=== PATIENT | female | born 1935 | race Caucasian/White ===

== ENCOUNTER 2016-09-26 18:20 | Observation (INO) | payer MEDICARE, BC ==
--- NOTE | ~2016-09-26 | HP ---
History And Physical [place] [address] [facility] [place]. [address] NAME: KAELYN SAAVEDRA : 39 STATUS : ADM Milena PAT#: [id number] AGE: 81 ADM/REG DATE : 09/26/16 MR#: [id number] REPORT SERV DATE: 09/27/16 DICTATED BY: ALCIRA FLORENTINO DATE: 09/27/16 REPORT STATUS : Draft TRANSCRIBED BY: FRANK DATE: 09/27/16 DATE OF ADMISSION: 09/26/2016 PRIMARY FRAME ALIGNER: Joe Miles M.D. CHIEF COMPLAINT: Chest pain. HISTORY OF PRESENT ILLNESS: This is a very pleasant 81-year-old female with no history of coronary artery disease, who states onset of midsternal chest pain approximately five days ago. It began Friday afternoon, and she assumed it was indigestion. It was intermittent, occurring a couple of times a day over the next couple of days, lasting a total of perhaps 20 minutes, but each day, there seemed to be increasing occurrences of the chest pain until yesterday morning on Friday when she was awakened by the chest pain around 6 o'clock. Over the course of the morning, she took some Xanax and her normal medications as well as Tums and a Coca Cola, but this did not seem to ease the pain. She ate a lunch and then went to her primary care physician in the early afternoon yesterday. They performed an EKG and called EMS, who brought her here to our emergency department. One sublingual nitroglycerin en route to our emergency department as well as a couple of other doses of sublingual nitroglycerin throughout the course of her stay have not eased her chest pain at all. She states it is currently a 5/10 in intensity and seems to be somewhat relieved with IV morphine. It is not pleuritic in nature nor was it worse when she was doing her housework yesterday while having the pain. She describes it as burning to her mid chest with no specific radiation and no significant shortness of breath. It is also not positional. It has not been fully relieved since yesterday morning. The patient denies any recent fever, cough, or chills. She does have a history of a DVT to the right lower extremity and was maintained on Coumadin for some time with it being discontinued approximately one year ago. Her platelet count is low at 95 on this admission, and the patient reports easy bruising that she has noticed chronically. Denies any recent bloody bowel movements or black-colored stools. She actually had a full GI workup with endoscopy and colonoscopy approximately two weeks ago. She has had 20-pound weight loss in the last six months. She states the only finding on those procedures was some gastritis. She has had no new medications started and mostly takes her medications p.r.n., except her Toprol, Prilosec, and calcium plus vitamin D. She had a syncopal episode several months ago, requiring an ER visit with no etiology found. No other recent presyncope, palpitations, PND, or orthopnea. The patient has chronic lower extremity edema, typically worse in the left side, and this has not increased recently. PAST MEDICAL HISTORY: 1. Hypertension. 2. Mixed hyperlipidemia. 3. History of ventricular arrhythmia ablation. 4. History of right lower extremity DVT, now off Coumadin. 5. Anxiety. 6. GERD and gastritis with recent colonoscopy and endoscopy. 7. History of MRSA in 08/2015 to the right lower extremity after a cat scratch. History And Physical [address] [address] NAME: KAELYN SAAVEDRA : 39 STATUS : ADM Milena PAT#: [id number] AGE: 81 ADM/REG DATE : 09/26/16 MR#: [id number] REPORT SERV DATE: 09/27/16 DICTATED BY: ALCIRA FLORENTINO DATE: 09/27/16 REPORT STATUS : Draft TRANSCRIBED BY: FRANK DATE: 09/27/16 8. Hospitalization for lumbar radiculopathy and lower extremity pain in 09/2015. 9. CKD 3. 10.Osteoporosis and kyphosis. PAST SURGICAL HISTORY: Cholecystectomy in 2011, hysterectomy, multiple bladder surgeries. HOME MEDICATIONS: Xanax 0.5 mg daily p.r.n. anxiety, calcium plus vitamin D daily, Benadryl 25 daily p.r.n. allergies, Lasix 40 mg daily p.r.n. swelling, [place] 7.5/325 one tab b.i.d. p.r.n., Toprol-XL 50 daily, Prilosec 20 mg daily, potassium gluconate 99 mg p.o. daily. SOCIAL HISTORY: The patient is a . Her great granddaughter lives with her. She still does her housework and drives. She uses a walker only as needed. She has never smoked. Denies alcohol use. FAMILY HISTORY: Sister with history of CABG twice, in her 70s. No premature cardiovascular disease among her first-degree relatives. REVIEW OF SYSTEMS: Negative, except as indicated above. PHYSICAL EXAMINATION: VITAL SIGNS: Blood pressure 132/60, heart rate of 69, temperature 97.8, pulse oximetry 98% on 2 L nasal cannula. BMI 26.1. GENERAL: Well developed, well nourished, in no acute distress. HEENT: Anicteric. Normal EOM. Head, normocephalic. PERRLA, no xanthelasma. NECK: Supple. No JVD. Carotids normal without bruits. LUNGS: Clear to auscultation bilaterally anterior and posterior. Respirations even and unlabored. CARDIOVASCULAR: S1, S2. Regular rate and rhythm. No murmurs, rubs, or gallops appreciated. There is some chest wall tenderness to palpation over the midsternum. ABDOMEN: Normal bowel sounds. Soft and nontender to palpation. No masses or organomegaly. EXTREMITIES: 1+ edema to the bilateral lower extremities. No calf tenderness. No cyanosis or clubbing. Normal distal pulses. Bruising noted to right upper and lower extremities. SKIN: Warm and dry. Normal turgor. No pallor or cyanosis. MUSCULOSKELETAL: Moving all extremities x4. Normal muscle strength. NEURO/PSYCH: Alert and oriented with appropriate affect. LABORATORY DATA: White blood count 5.5, hemoglobin 13.3, hematocrit 41.0. Sodium 145, potassium 3.9, BUN 13, creatinine 1.0. Troponin less than 0.02 x3. Liver enzymes and lipase normal. Platelet count was 95. EKGs interpreted by myself, including EKG from the patient's primary care physician, indicate normal sinus rhythm with questionable inferior Q- waves and poor R-wave progression to the anterior septal leads. No significant change from historic EKGs. Chest x-ray indicates some cardiomegaly, no acute cardiopulmonary processes. ASSESSMENT AND PLAN: 1. Atypical chest pain in this 81-year-old female with no prior coronary artery disease. She actually has had a cardiac catheterization in 2004, showing normal coronary History And Physical [address] [place]. [address] NAME: KAELYN SAAVEDRA : 39 STATUS : ADM Milena PAT#: [id number] AGE: 81 ADM/REG DATE : 09/26/16 MR#: [id number] REPORT SERV DATE: 09/27/16 DICTATED BY: ALICRA FLORENTINO DATE: 09/27/16 REPORT STATUS : Draft TRANSCRIBED BY: FRANK DATE: 09/27/16 arteries. She has been observed overnight in the chest pain observation unit and is negative for acute coronary syndrome. With her history of deep vein thrombosis as well as the atypical nature of this chest pain, I would like to send her for a CTA of the chest. If this does not reveal any acute aortic complications or pulmonary embolism, we will plan to send her for a nuclear stress test today. If stress testing is low risk, I will consider a hospitalist consult for noncardiac chest pain versus discharge home with close followup with her primary care physician. I will re-evaluate with the patient later this afternoon. She has been requiring IV morphine for the chest pain. 2. Thrombocytopenia of uncertain etiology. She is not currently taking any medications that would cause this. The patient notes easy bruising, although this has been going on for a long time. Historic platelet count according to our records indicates a platelet count of 134 on 01/27/2016. Recommended to the patient a close followup with her primary care physician. Suspect a level of bone marrow suppression. 3. History of deep vein thrombosis, not currently on Coumadin. The patient denies any symptoms of increased edema or calf pain. 4. Gastroesophageal reflux disease and gastritis by EGD recently. Continue PPI. We actually gave a dose of IV Protonix this morning. 5. Hypertension. Blood pressure controlled. Continue beta-garth after stress testing. 6. Mixed hyperlipidemia, not currently on any statin agent. 7. Chronic kidney disease 3. I will plan to give the patient some gentle IV hydration after her CTA of the chest since she has been n.p.o. today for stress testing. SHANA/FRANK Alcira Florentino NP / [id number] CC: Yamileth Kline, MSN, HIGH SCHOOL COORDINATOR-BC MD Joe Valderrama M.D.
[~2016-09-26 18:20] MED LIST: ATV.5 PO; BIST PO; CALTRA600D PO; COZ50 PO; JANTOVEN3 MG PO; JANTOVEN4 MG PO; L20 PO; LIPITOR20 PO; NORCO1 TA2 PO; POTASSIUM 99MG OTC PO; POTASSIUM GLUCONATE PO; SANTYL250 MG/GM TOP; SPIRO25 PO; TOPXL50 PO; VIBRATAB100 MG PO; VOLT75 PO; ZYVOXPO PO; [UNRECOGNIZED DRUG - OTHER] TOP
[2016-09-26 19:20] LABS: BASOPHILS 0.4 %; BASOPHILS ABSOLUTE 0.02 10/3/uL (0.0-0.16); EOSINOPHILS 1.3 %; EOSINOPHILS ABSOLUTE 0.07 10/3/uL (0.0-0.53); ER CBC TAT 0 Hrs 07 Mins; HEMOGLOBIN 13.3 g/dL (12.0-16.0); IMMATURE GRANULOCYTES 0.2 %; IMMATURE GRANULOCYTES ABSOLUTE 0.01 10/3/uL (0.0-0.11); LYMPHOCYTES 33.5 %; LYMPHOCYTES ABSOLUTE 1.83 10/3/uL (0.67-4.30); MEAN CORPUS HGB CONC 32.4 g/dL (32.0-36.0); MEAN CORPUSCULAR HEMOGLOB 29.3 pg (26.0-34.0); MEAN PLATELET VOLUME 10.9 fL (9.2-13.0); NEUTROPHILS 53.6 %; NEUTROPHILS ABSOLUTE 2.94 10/3/uL (2.02-8.40); PLATELET COUNT 95 10/3/uL (150-400); RBC DISTRIBUTION WIDTH 15.1 % (12.0-16.0); RED CELL COUNT 4.54 10/6/uL (4.0-5.6); WHITE BLOOD CELLS 5.5 10/3/uL (4.5-10.5)
[2016-09-26 19:21] LABS: MANUAL DIFF NO %; MEAN CORPUSCULAR VOLUME 90.3 fL (80-100)
[2016-09-26 19:39] LABS: ALKALINE PHOSPHATASE 106 U/L (45-117); CALCIUM, SERUM 8.6 MG/DL (8.5-10.4); CHEST PAIN PROFILE TAT 0 Hrs 26 Mins; CHLORIDE, SERUM 113 MMOL/L (96-112); CO2 (CARBON DIOXIDE) 23 MMOL/L (24-34); CREATININE 1.07 MG/DL (0.55-1.02); DIRECT BILIRUBIN 0.1 MG/DL (0.0-0.4); GFR AFRICAN AMERICAN 57 ML/MIN (>=60); GFR NON AFRICAN AMERICAN 49 ML/MIN (>=60); INDIRECT BILIRUBIN(NOT ORDER) 0.3 MG/DL (0.1-0.9); POTASSIUM, SERUM 3.9 MMOL/L (3.5-5.3); SGPT(ALT) 14 U/L (5-65); TOTAL BILIRUBIN 0.4 MG/DL (0-1.2); TROPONIN I <0.02 NG/ML (<0.05)
[2016-09-26 19:40] LABS: ALBUMIN 3.4 G/DL (3.5-5.0); BUN (BLOOD UREA NITROGEN) 13 MG/DL (6-23); GLUCOSE, SERUM 81 MG/DL (60-99); SGOT(AST) 20 U/L (5-40); SODIUM, SERUM 145 MMOL/L (135-148)
[2016-09-26] MEDS ORDERED: L40 PO (21:06)
[2016-09-26] MEDS ORDERED: POTASSIUM GLUCO99 MG PO (21:06)
[2016-09-26] MEDS ORDERED: TOPXL50 PO (21:06)
[2016-09-26] MEDS ORDERED: CALTRA600D PO (21:06)
[2016-09-26] MEDS ORDERED: PRILO PO (21:06)
[2016-09-26] MEDS ORDERED: X5 PO (21:07)
[2016-09-26] MEDS ORDERED: NORCO1 TA2 PO (21:07)
[2016-09-26] MEDS ORDERED: BEN25 PO (21:08)
[2016-09-27] MEDS ORDERED: ZYRTEC ALLGY10 MG PO (16:18)
== END 2016-09-27 18:10 | disposition home or self-care (01) ==
LOC: ER 18:20 → CDU1 22:36 → CDU2 23:46
PROVIDERS: Hospitalist
DX: R07.89 Other chest pain (principal); K21.9 Gastro-esophageal reflux disease without esophagitis; I12.9 Hypertensive chronic kidney disease with stage 1 through stage 4 chronic kidney disease, or unspecified chronic kidney disease; E78.2 Mixed hyperlipidemia; N18.3 Chronic kidney disease, stage 3 (moderate); F41.9 Anxiety disorder, unspecified; M81.0 Age-related osteoporosis without current pathological fracture; M19.90 Unspecified osteoarthritis, unspecified site; Z86.718 Personal history of other venous thrombosis and embolism; Z90.49 Acquired absence of other specified parts of digestive tract; Z90.710 Acquired absence of both cervix and uterus; Z98.890 Other specified postprocedural states; Z79.52 Long term (current) use of systemic steroids; Z79.899 Other long term (current) drug therapy; Z82.49 Family history of ischemic heart disease and other diseases of the circulatory system
CPT/HCPCS: 71010; 71275; 78452; 80048; 80076; 83690; 83735; 84484; 85025; 85610; 85730; 93005; 93017; 96374; 96375; 96376; 99285; A9270-GY; A9502; C9113; G0378; J0153; Q9967